=== PATIENT | male | born 1990 | race Caucasian/White ===

== ENCOUNTER 2022-07-10 07:36 | Emergency (ER) | payer OTHER ==
[~2022-07-10] VITALS: Ht 177.8 cm; Wt 97.5 kg
[~2022-07-10 07:36] MED LIST: CIPR500 PO; OXYACE5T PO
[2022-07-10] MEDS ORDERED: CYCL10 PO (08:03)
[2022-07-10] MEDS ORDERED: METPRE4DP PO (08:03)
== END 2022-07-10 08:22 | disposition home or self-care (01) ==
LOC: ER 07:36
DX: M54.16 Radiculopathy, lumbar region (principal)
CPT/HCPCS: A9270; J7512

== ENCOUNTER 2023-04-10 09:22 | Emergency (ER) | payer OTHER ==
[~2023-04-10] VITALS: Ht 177.8 cm; Wt 98.0 kg
[~2023-04-10 09:22] MED LIST changes: +CYCL10 PO; +METPRE4DP PO
[2023-04-10 09:37] VITALS: BP 124/80
[2023-04-10] MEDS ORDERED: LAMO100 PO (09:44)
[2023-04-10] MEDS ORDERED: PROP10 PO (09:44)
[2023-04-10] MEDS ORDERED: MIRALAX17 GM PO (09:45)
== END 2023-04-10 11:16 | disposition home or self-care (01) ==
LOC: ER 09:22
DX: S61.210A Laceration without foreign body of right index finger without damage to nail, initial encounter (principal); Z23 Encounter for immunization; W29.3XXA Contact with powered garden and outdoor hand tools and machinery, initial encounter
CPT/HCPCS: 73140; 90714; 90715